=== PATIENT | male | born 1985 | race Caucasian/White ===

== ENCOUNTER 2021-06-30 07:26 | Day surgery (SDC) | payer OTHER ==
[2021-06-30] VITALS (10 sets, daily range): BP systolic 110–138; BP diastolic 67–80
[~2021-06-30] VITALS: Ht 180.3 cm; Wt 95.2 kg
--- NOTE | 2021-06-30 07:45 | NUR ---
PATIENT ESCORTED TO ROOM BY ANR NURSE. 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 LUNG FIELD ARE CLEAR VITAL SIGNS OBTAINED SEE INTERVENTIOS. ROOM SAFTEY EXPLAINED. SIDERAILS ARE UP CALL LIGHT WITHIN REACH.
--- NOTE | 2021-06-30 09:45 | NUR ---
PATIENT BP RE-CHECKED AT THIS TIME. BP IS 122/72 THIS WAS REPORTED TO CARLOS ENRIQUE KELLEY NURSE AT THIS TIME.
[2021-06-30 11:28] LABS: HEMATOCRIT 44.9 % (39.0-50.0); HEMOGLOBIN 14.9 g/dl (14.0-18.0); IMMATURE GRANULOCYTES 0.3 % (0.0-5.0); MEAN CELL VOLUME 89.8 fL CALC (80.0-100.0); MEAN CORPUSCULAR HGB 29.8 pG CALC (26.0-32.0); MEAN CORPUSCULAR HGB CONC 33.2 g/dL CAL (32.0-36.0); NEUT# 4.62 thou/uL (1.82-7.42); RED CELL DISTRI WIDTH 12.6 % (11.5-15.5)
--- NOTE | 2021-06-30 12:19 | NUR ---
PATIENT LAYING IN BED AT THIS TIME PATIENT DEINES ANY NEEDS AT THIS TIME. PATIENT AWAITING ANR PROCEEDURE AT THIS TIME.
--- NOTE | 2021-06-30 13:59 | NUR ---
PATIENT TAKEN DOWN TO TRAUMA ROOM FOR ANR PROCEEDURE AT THIS TIME. PATIENT TRANSPORTED VIA BED WITH DR. ASHBY AND ZACK GALINDO AT THIS TIME.
[2021-06-30 14:29] LABS: ALKALINE PHOSPHATASE 62 u/l (38-126); ANION GAP 8 (6-22 (CALC)); BILIRUBIN, TOTAL 0.6 mg/dL (0.0-1.4); BUN 10 mg/dL (9-20); BUN/CREATININE RATIO 15 (12-20 (CALC)); CARBON DIOXIDE 28 mmol/l (22-30); CHLORIDE 105 mmol/l (95-108); CREATININE 0.7 mg/dL (0.7-1.3); GFR > 60 ML/MIN (>=60 (CALC)); GFR FOR AFR.AMER. > 60 ML/MIN (>=60 (CALC)); POTASSIUM 4.1 mmol/l (3.5-5.1); SGOT/AST 38 u/l (17-59); SODIUM 137 mmol/l (137-146)
--- NOTE | 2021-06-30 15:53 | NUR ---
PATIENT REMAINS DOWN IN ANR PROCEEDURE AT THIS TIME.
--- NOTE | 2021-06-30 18:22 | NUR ---
PATIENT REMAINS IN ANR PROCEEDURE AT THIS TIME.
[2021-07-01 04:00] VITALS: BP 114/65
[2021-07-01 05:46] LABS: ALBUMIN 3.8 g/dL (3.2-5.0); ALKALINE PHOSPHATASE 53 u/l (38-126); BUN 10 mg/dL (9-20); BUN/CREATININE RATIO 14 (12-20 (CALC)); CHLORIDE 106 mmol/l (95-108); CREATININE 0.7 mg/dL (0.7-1.3); GFR > 60 ML/MIN (>=60 (CALC)); GFR FOR AFR.AMER. > 60 ML/MIN (>=60 (CALC)); POTASSIUM 3.7 mmol/l (3.5-5.1); SGOT/AST 28 u/l (17-59); SODIUM 136 mmol/l (137-146); TOTAL PROTEIN 6.4 g/dL (6.3-8.2)
[2021-07-01 05:47] LABS: ANION GAP 12 (6-22 (CALC)); BILIRUBIN, TOTAL 0.9 mg/dL (0.0-1.4); CARBON DIOXIDE 22 mmol/l (22-30)
--- NOTE | 2021-07-01 07:10 | NUR ---
PATIENT LAYING IN BED AT THIS TIME ALERT AND ORIENTED DENIES PAIN. SIDERAILS ARE UP FOR SAFETY PER ANR PROCEEDURE. PATIENT FOUND TO HAVE PULLED IV OUT AND TIP INTACT. IV SITE CLEANED AND NO SIGNS OF IV SITE INFECTION AT THIS TIME. 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
[2021-07-01 07:55] VITALS: BP 87/55
--- NOTE | 2021-07-01 11:54 | NUR ---
PATIENT UP TO BR AT THIS TIME. INCONTIENT OF STOOL PATIENT IS ALERT AND ORIENTED DENEIS ANY PAIN. ASSISTED BACK TO BED AT THIS TIME. SIDERAILS ARE UP CALL LIGHT NEAR. PATIENT REFUSES TO USE CALL LIGHT.
--- NOTE | 2021-07-01 12:45 | NUR ---
[place] RN'S WITH [facility] [employer] CAME TO THIS NURSE AND REQUESTED [address] WRIGHT TO WRITE OUT PRESCRIPTIONS. THIS NURSE PULLED 3 AND GAVE TO MARSHA DIXON.
[2021-07-01 15:15] VITALS: BP 118/63
--- NOTE | 2021-07-01 16:00 | NUR ---
PATIENT RESTING IN BED AT THIS TIME. IV REMOVED BY PATIENT. PATIENT UPSET WITH [facility] AND VOICED CONCERNS TO WHY HE CAN'T CALL HIS . PATIENT ADVISED THAT ANR NURSE OZUNA WAS ON HIS WAY UP TO SEE PATIENT. PATIENT DENIES ALL OTHER NEEDS
--- NOTE | 2021-07-01 17:31 | NUR ---
Discharge instructions given. Patient verbalizes understanding of same. Discharged in stable condition via Wheelchair to Home with *Other. All belongings sent with pt. PATIENT D/C AT THIS TIME LAITH GALINDO FROM ANR ESCORTED PATIENT OUT.
== END 2021-07-01 17:30 | disposition home or self-care (01) | DRG 897 ==
LOC: ANR 07:26 → MS2 07:29 → ANR 10:03
PROVIDERS: Nurse Practitioner; ATTEND Anesthesiology
DX: F11.20 Opioid dependence, uncomplicated (principal)
CPT/HCPCS: J2354